=== PATIENT | female | born 1955 | race Caucasian/White ===

== ENCOUNTER 2024-01-14 20:03 | Outpatient (CLI) | payer OTHER, SELFPAY | END 2024-01-14 20:04 | disposition home or self-care (01) | LOC: SLEEP 20:09 | PROVIDERS: PCP Chiropractor; Referring Provider Internal Medicine; Visit Provider Internal Medicine | DX: G47.33 Obstructive sleep apnea (adult) (pediatric) (principal); R09.02 Hypoxemia | CPT/HCPCS: 95810 ==